=== PATIENT | male | born 1975 | race Asian ===

== ENCOUNTER 2018-01-07 11:25 | Inpatient (IN) | payer MEDICAID ==
[~2018-01-07] VITALS: Ht 180.3 cm; Wt 55.3 kg
[2018-01-07 11:44] VITALS: BP_SYST 147
[2018-01-07] MEDS ORDERED: NACL 0.9% 1,000 ML IV ONE (12:30)
[2018-01-07] MEDS ORDERED: DIPHENHYDRAMINE INJ 50 MG/ML VIAL IVP ONE (12:30)
[2018-01-07 12:49] LABS: BASOPHILS % (AUTO) 0.3 % (0.0-2.0); HEMATOCRIT 42.1 % (36-54); HEMOGLOBIN 14.4 g/dL (14.0-18.0); LYMPHOCYTES # (AUTO) 0.7 K/uL (1.0-5.5); MEAN CORPUSCULAR HEMOGLOBIN 33 pg (27-31); MEAN CORPUSCULAR HGB CONC 34 % (32-36); MEAN CORPUSCULAR VOLUME 97 fL (79.0-98.0); MONOCYTES # (AUTO) 0.6 K/uL (0.0-1.0); MONOCYTES % (AUTO) 8.2 % (1.7-9.3); NEUTROPHILS # (AUTO) 6.4 K/uL (1.8-7.7); PLATELET COUNT (AUTO) 77 K/uL (130-430); RED BLOOD CELL COUNT(AUTO) 4.32 MIL/uL (4.2-6.2); RED CELL DISTRIBUTION WIDTH 15.6 % (9.0-15.0); WHITE BLOOD COUNT (AUTO) 7.7 K/uL (4.8-10.8)
[2018-01-07 13:05] LABS: PROTHROMBIN TIME 9.8 SECS (9.5-12.5)
[2018-01-07 13:13] LABS: ANION GAP 24 (5-15); CALCIUM 9.3 mg/dL (8.4-11.0); CHLORIDE 88 mmol/L (98-107); GLUCOSE 187 mg/dL (70-99); POTASSIUM 3.1 mmol/L (3.5-5.1); SODIUM SERUM 126 mmol/L (136-145); UREA NITROGEN, BLOOD 15 mg/dL (8-21)
[2018-01-07 13:17] LABS: GFR AFRICAN AMERICAN 78 mL/min (>90); NEUTROPHILS % (AUTO) 82.5 % (40.0-70.0)
[2018-01-07 13:29] LABS: ALANINE AMINOTRANSFERASE 200 U/L (12-78); ALBUMIN 3.9 g/dL (3.4-4.8); ASPARTATE AMINOTRANSFERASE 153 U/L (10-37); FREE T4 (FREE THYROXINE) 0.4 ng/dL (0.6-1.6); TOTAL BILIRUBIN 2.1 mg/dL (0.0-1.0)
[2018-01-07 13:30] LABS: ALCOHOL, BLOOD < 3 mg/dL (<10)
[2018-01-07] MEDS ORDERED: KCL 20 mEq in D5/0.45NS 1000mL 1,000 ML IV SCH (14:30)
[2018-01-07 15:07] VITALS: BP_SYST 122
[2018-01-07 15:31] VITALS: BP_SYST 124
[2018-01-07 16:00] VITALS: BP_SYST 124
[2018-01-07] MEDS: KCL 20 mEq in D5/0.45NS 1000mL 1,000 ML IV SCH (16:06)
[2018-01-07] MEDS ORDERED: THIAMINE HCL 100 MG in NS 50 ML IV ONE (17:30)
[2018-01-07 20:00] VITALS: BP_SYST 127
[2018-01-07] MEDS: PANTOPRAZOLE SODIUM 40 MG/VIAL (PROTONIX) IVP SCH (21:48)
[2018-01-08] MEDS: KCL 20 mEq in D5/0.45NS 1000mL 1,000 ML IV SCH ×4 (00:08→19:30)
[2018-01-08 00:24] VITALS: BP_SYST 122
[2018-01-08] MEDS ORDERED: DIPHENHYDRAMINE INJ 50 MG/ML VIAL IVP ONE (01:00)
[2018-01-08] MEDS: ONDANSETRON HCL 4 MG/2 ML VIAL IVP PRN ×2 (01:50→15:36)
[2018-01-08 06:44] LABS: CALCIUM 8.9 mg/dL (8.4-11.0); CREATININE 0.87 mg/dL (0.55-1.30)
[2018-01-08 06:52] LABS: POTASSIUM 2.5 mmol/L (3.5-5.1)
[2018-01-08 07:11] LABS: BASOPHILS % (AUTO) 0.2 % (0.0-2.0); EOSINOPHILS % (AUTO) 0.1 % (0.0-4.0); HEMATOCRIT 34.1 % (36-54); HEMOGLOBIN 11.6 g/dL (14.0-18.0); LYMPHOCYTES # (AUTO) 0.8 K/uL (1.0-5.5); LYMPHOCYTES % (AUTO) 14.1 % (20.5-51.5); MEAN CORPUSCULAR HEMOGLOBIN 33 pg (27-31); MEAN CORPUSCULAR HGB CONC 34 % (32-36); MEAN CORPUSCULAR VOLUME 98 fL (79.0-98.0); MONOCYTES # (AUTO) 0.3 K/uL (0.0-1.0); NEUTROPHILS # (AUTO) 4.7 K/uL (1.8-7.7); RED BLOOD CELL COUNT(AUTO) 3.47 MIL/uL (4.2-6.2); RED CELL DISTRIBUTION WIDTH 15.6 % (9.0-15.0); WHITE BLOOD COUNT (AUTO) 5.8 K/uL (4.8-10.8)
[2018-01-08] MEDS ORDERED: POTASSIUM CHLORIDE 40 MEQ in NS 250 ML IV ONE (07:30)
[2018-01-08] MEDS ORDERED: POTASSIUM CHLORIDE 20 MEQ TAB.PRT.SR PO ONE (07:30)
[2018-01-08 07:38] LABS: PLATELET COUNT (AUTO) 48 K/uL (130-430)
[2018-01-08 08:00] VITALS: BP_SYST 113
[2018-01-08] MEDS ORDERED: IOHEXOL 100 ML IV ONE (08:09)
[2018-01-08] MEDS ORDERED: DIATR MEGLU/DIATRIZ SOD 30 ML SOLUTION PO ONE (08:09)
[2018-01-08] MEDS: PANTOPRAZOLE SODIUM 40 MG/VIAL (PROTONIX) IVP SCH ×2 (08:38→20:50)
[2018-01-08] MEDS: MIDAZOLAM HCL 5 MG/5 ML VIAL ONE ×4 (09:26→10:00)
[2018-01-08] MEDS: MEPERIDINE HCL/PF 100 MG/ML AMP ONE ×3 (09:26→09:55)
[2018-01-08] MEDS ORDERED: MIDAZOLAM HCL 5 MG/5 ML VIAL ONE (09:26)
[2018-01-08 09:27] LABS: NEUTROPHILS % (AUTO) 79.6 % (40.0-70.0)
[2018-01-08] MEDS ORDERED: SIMETHICONE 40 MG/0.6 ML ML ONE (09:27)
[2018-01-08] MEDS: DIPHENHYDRAMINE INJ 50 MG/ML VIAL ONE ×2 (09:53→10:30)
[2018-01-08] MEDS ORDERED: MAGNESIUM SULFATE 50 ML IV ONE (10:45)
[2018-01-08] MEDS ORDERED: SUCRALFATE 1 GM/10 ML UDC GT ONE (10:45)
[2018-01-08] MEDS ORDERED: PANTOPRAZOLE SODIUM 40 MG/VIAL (PROTONIX) IVP ONE (10:45)
[2018-01-08] MEDS ORDERED: MULTIVITAMINS TAB 1 TABLET PO ONE (10:45)
[2018-01-08] MEDS ORDERED: FOLIC ACID 1 MG TABLET PO ONE (10:45)
[2018-01-08] MEDS ORDERED: THIAMINE HCL 100 MG TABLET PO ONE (10:45)
[2018-01-08 11:47] VITALS: BP_SYST 111
[2018-01-08] MEDS: chlordiazePOXIDE HCL 25 MG CAPSULE PO PRN ×2 (12:29→20:50)
[2018-01-08] MEDS ORDERED: MAGNESIUM SULFATE 4 GM in D5W 250 ML IV ONE (16:00)
[2018-01-08 16:52] VITALS: BP_SYST 102
[2018-01-08] MEDS ORDERED: SUCRALFATE 1 GM/10 ML UDC GT SCH (17:00)
[2018-01-08 20:00] VITALS: BP_SYST 111
[2018-01-08 20:20] LABS: CALCIUM 8.6 mg/dL (8.4-11.0); CREATININE 0.8 mg/dL (0.55-1.30); POTASSIUM 3.2 mmol/L (3.5-5.1)
[2018-01-09] VITALS: BP_SYST 118
[2018-01-09] MEDS: KCL 20 mEq in D5/0.45NS 1000mL 1,000 ML IV SCH ×3 (00:03→17:54)
[2018-01-09] MEDS: SUCRALFATE 1 GM/10 ML UDC PO SCH ×2 (06:28→16:34)
[2018-01-09 07:34] LABS: INR 0.9 (0.80-1.20); PROTHROMBIN TIME 9.6 SECS (9.5-12.5)
[2018-01-09 07:35] LABS: ALBUMIN 2.8 g/dL (3.4-4.8); CALCIUM 8.5 mg/dL (8.4-11.0); CREATININE 0.82 mg/dL (0.55-1.30)
[2018-01-09 07:45] LABS: POTASSIUM 2.9 mmol/L (3.5-5.1)
[2018-01-09] MEDS: chlordiazePOXIDE HCL 25 MG CAPSULE PO PRN ×3 (08:11→17:53)
[2018-01-09] MEDS: MULTIVITAMINS TAB 1 TABLET PO SCH (08:11)
[2018-01-09] MEDS: THIAMINE HCL 100 MG TABLET PO SCH (08:11)
[2018-01-09] MEDS: FOLIC ACID 1 MG TABLET PO SCH (08:11)
[2018-01-09] MEDS: PANTOPRAZOLE SODIUM 40 MG/VIAL (PROTONIX) IVP SCH ×2 (08:12→20:49)
[2018-01-09 08:14] LABS: HEMATOCRIT 32.4 % (36-54); MEAN CORPUSCULAR HEMOGLOBIN 34 pg (27-31); MEAN CORPUSCULAR HGB CONC 34 % (32-36); MEAN CORPUSCULAR VOLUME 99 fL (79.0-98.0); PLATELET COUNT (AUTO) 68 K/uL (130-430); RED BLOOD CELL COUNT(AUTO) 3.26 MIL/uL (4.2-6.2); RED CELL DISTRIBUTION WIDTH 15.6 % (9.0-15.0); WHITE BLOOD COUNT (AUTO) 4.8 K/uL (4.8-10.8)
[2018-01-09 08:50] LABS: PHOSPHORUS 0.7 mg/dL (2.7-4.5)
[2018-01-09 09:02] VITALS: BP_SYST 109
[2018-01-09] MEDS ORDERED: K PHOS 30 MM in NS 250 ML IV ONE (10:15)
[2018-01-09] MEDS ORDERED: POTASSIUM CHLORIDE 20 MEQ TAB.PRT.SR PO ONE (10:15)
[2018-01-09] MEDS ORDERED: NAPH,MB-DB/K PH,MBDB 250 MG TAB PO ONE (11:00)
[2018-01-09] MEDS: NAPH,MB-DB/K PH,MBDB 250 MG TAB PO SCH (11:05)
[2018-01-09 12:01] VITALS: BP_SYST 101
[2018-01-09] MEDS ORDERED: NAPH,MB-DB/K PH,MBDB 250 MG TAB PO SCH (12:30)
[2018-01-09 14:40] LABS: BAND % (MANUAL) 8 % (0-6); BASOPHILS % (MANUAL) 0 % (0-2); EOSINOPHILS % (MANUAL) 0 % (0-7); LYMPHOCYTES % (MANUAL) 25 % (20-46); MONOCYTES % (MANUAL) 8 % (0-11)
[2018-01-09 15:31] VITALS: BP_SYST 112
[2018-01-09 20:00] VITALS: BP_SYST 111
[2018-01-10] VITALS: BP_SYST 110
[2018-01-10] MEDS: chlordiazePOXIDE HCL 25 MG CAPSULE PO PRN ×4 (00:25→22:25)
[2018-01-10] MEDS: KCL 20 mEq in D5/0.45NS 1000mL 1,000 ML IV SCH ×3 (00:26→16:40)
[2018-01-10] MEDS: SUCRALFATE 1 GM/10 ML UDC PO SCH ×2 (06:15→16:40)
[2018-01-10 06:58] LABS: BASOPHILS % (AUTO) 0.4 % (0.0-2.0); EOSINOPHILS % (AUTO) 1.2 % (0.0-4.0); HEMATOCRIT 30.7 % (36-54); HEMOGLOBIN 10.4 g/dL (14.0-18.0); LYMPHOCYTES # (AUTO) 0.9 K/uL (1.0-5.5); LYMPHOCYTES % (AUTO) 29.5 % (20.5-51.5); MEAN CORPUSCULAR HEMOGLOBIN 34 pg (27-31); MEAN CORPUSCULAR HGB CONC 34 % (32-36); MEAN CORPUSCULAR VOLUME 99 fL (79.0-98.0); MONOCYTES # (AUTO) 0.4 K/uL (0.0-1.0); MONOCYTES % (AUTO) 11.5 % (1.7-9.3); NEUTROPHILS # (AUTO) 1.8 K/uL (1.8-7.7); PLATELET COUNT (AUTO) 87 K/uL (130-430); RED BLOOD CELL COUNT(AUTO) 3.11 MIL/uL (4.2-6.2); RED CELL DISTRIBUTION WIDTH 15.7 % (9.0-15.0); WHITE BLOOD COUNT (AUTO) 3.1 K/uL (4.8-10.8)
[2018-01-10 07:12] LABS: PROTHROMBIN TIME 9.8 SECS (9.5-12.5)
[2018-01-10 07:35] LABS: ALBUMIN 2.5 g/dL (3.4-4.8); CREATININE 0.6 mg/dL (0.55-1.30); PHOSPHORUS 1.2 mg/dL (2.7-4.5); TOTAL BILIRUBIN 0.6 mg/dL (0.0-1.0)
[2018-01-10 07:53] LABS: NEUTROPHILS % (AUTO) 57.4 % (40.0-70.0)
[2018-01-10 08:00] VITALS: BP_SYST 133
[2018-01-10 08:02] VITALS: BP_SYST 126
[2018-01-10] MEDS: NAPH,MB-DB/K PH,MBDB 250 MG TAB PO SCH (08:53)
[2018-01-10] MEDS: PANTOPRAZOLE SODIUM 40 MG/VIAL (PROTONIX) IVP SCH ×2 (08:53→21:13)
[2018-01-10] MEDS: THIAMINE HCL 100 MG TABLET PO SCH (08:53)
[2018-01-10] MEDS: FOLIC ACID 1 MG TABLET PO SCH (08:53)
[2018-01-10] MEDS: MULTIVITAMINS TAB 1 TABLET PO SCH (08:53)
[2018-01-10] MEDS ORDERED: POTASSIUM CHLORIDE 20 MEQ TAB.PRT.SR PO ONE ×2 (10:45→14:45)
[2018-01-10 12:00] VITALS: BP_SYST 132
[2018-01-10] MEDS ORDERED: MAGNESIUM SULFATE 4 GM in D5W 250 ML IV ONE (12:00)
[2018-01-10] MEDS ORDERED: K PHOS 30 MM in NS 250 ML IV ONE (12:45)
[2018-01-10] MEDS ORDERED: CHOLECALCIFEROL (VITAMIN D3) 2,000 UNIT TABLET PO ONE (13:00)
[2018-01-10] MEDS: MAG-AL HYDROX/SIMETH 30 ML UDC PO PRN ×2 (15:11→21:13)
[2018-01-10 16:00] VITALS: BP_SYST 122
[2018-01-10 20:00] VITALS: BP_SYST 118
[2018-01-11] VITALS: BP_SYST 125
[2018-01-11] MEDS: KCL 20 mEq in D5/0.45NS 1000mL 1,000 ML IV SCH ×2 (01:36→08:53)
[2018-01-11] MEDS: chlordiazePOXIDE HCL 25 MG CAPSULE PO PRN ×2 (02:17→09:56)
[2018-01-11] MEDS: SUCRALFATE 1 GM/10 ML UDC PO SCH (06:04)
[2018-01-11 06:48] LABS: HEMATOCRIT 32.5 % (36-54); HEMOGLOBIN 10.9 g/dL (14.0-18.0); MEAN CORPUSCULAR HEMOGLOBIN 33 pg (27-31); MEAN CORPUSCULAR HGB CONC 34 % (32-36); MEAN CORPUSCULAR VOLUME 99 fL (79.0-98.0); PLATELET COUNT (AUTO) 133 K/uL (130-430); RED BLOOD CELL COUNT(AUTO) 3.28 MIL/uL (4.2-6.2)
[2018-01-11 07:14] LABS: ALBUMIN 2.8 g/dL (3.4-4.8); CALCIUM 8.4 mg/dL (8.4-11.0); CREATININE 0.6 mg/dL (0.55-1.30); PHOSPHORUS 2.4 mg/dL (2.7-4.5); POTASSIUM 3.3 mmol/L (3.5-5.1); TOTAL BILIRUBIN 0.4 mg/dL (0.0-1.0)
[2018-01-11 08:30] VITALS: BP_SYST 122
[2018-01-11] MEDS: NAPH,MB-DB/K PH,MBDB 250 MG TAB PO SCH (08:52)
[2018-01-11] MEDS: THIAMINE HCL 100 MG TABLET PO SCH (08:52)
[2018-01-11] MEDS: PANTOPRAZOLE SODIUM 40 MG/VIAL (PROTONIX) IVP SCH (08:52)
[2018-01-11] MEDS: FOLIC ACID 1 MG TABLET PO SCH (08:52)
[2018-01-11] MEDS: MULTIVITAMINS TAB 1 TABLET PO SCH (08:52)
[2018-01-11] MEDS ORDERED: CHOLECALCIFEROL (VITAMIN D3) 2,000 UNIT TABLET PO SCH (09:00)
[2018-01-11] MEDS ORDERED: POTASSIUM CHLORIDE 20 MEQ/PKT PACKET PO ONE (09:15)
[2018-01-11 12:13] VITALS: BP_SYST 103
[2018-01-11 12:46] LABS: BAND % (MANUAL) 4 % (0-6); BASOPHILS % (MANUAL) 0 % (0-2); EOSINOPHILS % (MANUAL) 3 % (0-7); LYMPHOCYTES % (MANUAL) 25 % (20-46); MONOCYTES % (MANUAL) 18 % (0-11)
[2018-01-11] MEDS ORDERED: POTASSIUM CHLORIDE 20 MEQ TAB.PRT.SR PO ONE (15:15)
[2018-01-11 15:53] LABS: HEPATITIS A AB, IgM Negative (Negative); HEPATITIS B CORE AB, IgM Negative (Negative); HEPATITIS B SURFACE AG Negative (Negative)
[2018-01-11 16:00] VITALS: BP_SYST 123
== END 2018-01-11 17:05 | disposition home or self-care (01) | DRG 280 ==
LOC: SED 11:25 → STU 14:26
PROVIDERS: ADMIT Family Medicine; ATTEND Family Medicine
PROC: 0DB78ZX Excision of Stomach, Pylorus, Via Natural or Artificial Opening Endoscopic, Diagnostic (ICD-10-PCS; 2018-01-08)
PROC: 0DB58ZX Excision of Esophagus, Via Natural or Artificial Opening Endoscopic, Diagnostic (ICD-10-PCS; 2018-01-08)
PROC: 0DB98ZX Excision of Duodenum, Via Natural or Artificial Opening Endoscopic, Diagnostic (ICD-10-PCS; principal; 2018-01-08 09:00)
DX: K70.10 Alcoholic hepatitis without ascites (principal); K70.9 Alcoholic liver disease, unspecified; K22.11 Ulcer of esophagus with bleeding; K85.90 Acute pancreatitis without necrosis or infection, unspecified; D69.6 Thrombocytopenia, unspecified; K29.01 Acute gastritis with bleeding; E83.42 Hypomagnesemia; R65.10 Systemic inflammatory response syndrome (SIRS) of non-infectious origin without acute organ dysfunction; E87.1 Hypo-osmolality and hyponatremia; K29.81 Duodenitis with bleeding; R13.10 Dysphagia, unspecified; D64.9 Anemia, unspecified; F10.20 Alcohol dependence, uncomplicated; F17.200 Nicotine dependence, unspecified, uncomplicated; K44.9 Diaphragmatic hernia without obstruction or gangrene; R63.4 Abnormal weight loss; R62.7 Adult failure to thrive; Z90.49 Acquired absence of other specified parts of digestive tract; Z68.1 Body mass index [BMI] 19.9 or less, adult
CPT/HCPCS: 36415; 43239; 71045; 74018; 76700-TC; 80048; 80053; 80074; 82140-TC; 82150-TC; 83605; 83690-TC; 83735-TC; 83880; 84100-TC; 84439; 84484; 85007; 85025; 85027; 85384-TC; 85610-TC; 85730-TC; 87040-TC; 87081; 88305; 88312; 88313; 93005; 96361; 96374; 99285; C9113; G0482; J1200; J2175; J2250; J2405; J3411; J3475; J3480; J7030; J7050; J7060; Q9964; Q9967

== ENCOUNTER 2021-11-11 07:44 | Emergency (ER) | payer MEDICAID ==
[~2021-11-11] VITALS: Ht 177.8 cm; Wt 72.6 kg
[2021-11-11 08:15] VITALS: BP_SYST 120
[2021-11-11 10:09] LABS: BASOPHILS % (AUTO) 0.6 % (0.0-2.0); EOSINOPHILS # (AUTO) 0.1 K/uL (0.0-0.4); EOSINOPHILS % (AUTO) 1.2 % (0.0-4.0); HEMATOCRIT 43.4 % (36-54); LYMPHOCYTES # (AUTO) 1.1 K/uL (1.0-5.5); LYMPHOCYTES % (AUTO) 17.3 % (20.5-51.5); MEAN CORPUSCULAR HEMOGLOBIN 36 pg (27-31); MEAN CORPUSCULAR HGB CONC 35 % (32-36); MEAN CORPUSCULAR VOLUME 103 fL (79.0-98.0); MONOCYTES # (AUTO) 0.6 K/uL (0.0-1.0); NEUTROPHILS # (AUTO) 4.4 K/uL (1.8-7.7); NEUTROPHILS % (AUTO) 70.9 % (40.0-70.0); PLATELET COUNT (AUTO) 138 K/uL (130-430); RED BLOOD CELL COUNT(AUTO) 4.23 MIL/uL (4.2-6.2); RED CELL DISTRIBUTION WIDTH 15.3 % (9.0-15.0); WHITE BLOOD COUNT (AUTO) 6.3 K/uL (4.8-10.8)
[2021-11-11 10:15] LABS: CALCIUM 9.4 mg/dL (8.4-11.0); CREATININE 0.98 mg/dL (0.55-1.30); POTASSIUM 3.9 mmol/L (3.5-5.1)
[2021-11-11 10:30] LABS: ALBUMIN 4.1 g/dL (3.4-4.8); TOTAL BILIRUBIN 0.5 mg/dL (0.0-1.0)
[2021-11-11 10:46] LABS: ERYTHROCYTE SEDIMENTATION RATE 4 MM/HR (0-15)
--- NOTE | 2021-11-11 14:00 | NUR ---
Patient to ER bed ch1 to gown for evaluation. Side rails up.
--- NOTE | 2021-11-11 14:10 | NUR ---
ER at bedside examining patient.
[2021-11-11] MEDS ORDERED: HYDR-3917 PO (14:32)
[2021-11-11] MEDS ORDERED: IBUP-1971 PO (14:32)
[2021-11-11 15:20] VITALS: BP_SYST 120
--- NOTE | 2021-11-11 15:22 | NUR ---
Patient given written and verbal discharge instructions and verbalizes understanding. ER MD discussed with patient the results and treatment provided. Patient in stable condition. ID arm band removed. Rx of Ibuprofen and Hydrocodone given. Patient educated on pain management and to follow up with PMD. Pain Scale 3/10. Opportunity for questions provided and answered. Medication side effect fact sheet provided.
== END 2021-11-11 15:20 | disposition home or self-care (01) ==
LOC: SED 07:44
DX: M79.671 Pain in right foot (principal); Z79.899 Other long term (current) drug therapy
CPT/HCPCS: 36415; 80053; 84550; 85025; 85651-TC; 99284